=== PATIENT | male | born 1995 | race Caucasian/White ===

== ENCOUNTER 2023-12-27 14:25 | Outpatient (AMB) | payer BC, SELFPAY ==
--- NOTE | 2023-12-27 14:27 | A.OFFPC_ITS ---
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 Will order labs. 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 Pt is following up with an eye doctor due to recent Lasik. [facility] Medical History (Updated 12/27/23 @ 14:55 by IVY Jimenez) Testicular torsion Surgical History (Updated 12/27/23 @ 14:55 by IVY Jimenez) History of orchiectomy Hx of LASIK Family History Mother No problems noted. 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 1. Little interest or pleasure in doing things: not at all 2. Feeling down, depressed, or hopeless: not at all 3. Trouble falling or staying asleep, or sleeping too much: not at all 4. Feeling tired or having little energy: not at all 5. Poor appetite or overeating: not at all 6. Feeling bad about yourself - or that you are a failure or have let yourself or your family down: not at all 7. Trouble concentrating on things, such as reading the newspaper or watching television: not at all 8. Moving or speaking so slowly that other people could have noticed. Or the opposite - being so fidgety or restless that you have been moving around a lot more than usual: not at all 9. Thoughts that you would be better off or of hurting yourself in some way: not at all Total score: 0 Depression Screening Interpretation: Negative Depression Screening Done: Yes 74264 - PHQ-9 Billing: Yes Source: Developed by Drs. Berto Betancourt, Yoly Beckett, Noah Salazar and colleagues, with an educational ravinder from [employer]. Thrive Questionnaire Date Thrive assessed: 12/27/23 I am a: Patient What is your living situation today?: I have a steady place to live Within the past 12 months, did the food you bought not last and you didn't have the money to get more?: Never true Within the past 12 months, did you worry whether your food would run out before you got money to buy more?: Never true Do you have trouble paying for medicines?: No Do you have trouble getting transportation to medical appointments?: No Do you have trouble paying your heating and electricity bill?: No Do you have trouble taking care of your child, family member or friend?: No Do you have trouble with day-to-day activities such as bathing, preparing meals, shopping, managing finances, etc.?: No Are you currently unemployed and looking for a job?: No Are you interested in more education?: Yes Please select the resources that you would like help with: None Currently or been in a relationship where the following occur: no concerns reported THRIVE Score: 0 AUDIT C Alcohol Use Questionnaire (AUDIT-C) 1. How often do you have a drink containing alcohol?: 2-4 times a month 2. How many drinks containing alcohol do you have on a typical day when you are drinking?: 3 or 4 3. How often do you have six or more drinks on one occasion?: Never Total Score: 3 Score Reviewed/Action Taken: Yes JENIFER-7 AMB Questionnaire JENIFER-7 Date JENIFER - 7 assessed: 12/27/23 Feeling nervous, anxious, or on edge: 0 = Not at all Not being able to stop or control worryin = Not at all Worrying too much about different things: 0 = Not at all Trouble relaxin = Not at all Being so restless that it is hard to sit still: 0 = Not at all Becoming easily annoyed or irritable: 0 = Not at all Feeling afraid as if something awful might happen: 0 = Not at all Total JENIFER-7 score (0-4 normal; 5-9 mild; 10-14 moderate; 15-21 severe): 0 Source: Developed by Drs. Berto Betancourt, Yoly Beckett, Noah Salazar and colleagues, with an educational ravinder from [employer]. JENIFER-7 Assessment Billing JENIFER-7 Assessment Tool: JENIFER-7 Assessment 62455 Review of Systems Const Denies chills and Denies fever(s) Eyes Denies blurry vision ENT Denies vertigo, Denies dizziness and Denies sore throat Card Denies chest pain at rest, Denies chest pain with activity, Denies diaphoresis, Denies dyspnea and Denies dyspnea on exertion Resp Denies cough, Denies dyspnea, Denies dyspnea on exertion and Denies wheezing GI Denies abdominal pain, Denies melena, Denies hematochezia, Denies constipation, Denies diarrhea and Denies loose stools Denies hematuria Musc Denies numbness and Denies tingling Skin/Breast Denies lesions Neuro Denies vertigo, Denies dizziness, Denies numbness and Denies tingling Psych Denies anxiety, Denies depression, Denies homicidal ideation, Denies suicidal ideation and Denies other (substance abuse) Aller/Immun Denies wheezing Physical exam (Primary Care) Vital Signs: Last Vital Signs Pulse 70 12/27/23 14:32 BP 130/72 12/27/23 14:32 Pulse Ox 99 12/27/23 14:32 Oxygen Delivery Method Room Air 12/27/23 14:32 BMI result Body Mass Index 28.8 Tobacco/Smoking Status: Tobacco use Status Tobacco use date assessed 12/27/23 12/27/23 14:29 Patient Tobacco Use Status Never used Tobacco 12/27/23 14:40 e-Cigarette/Vaping Use Never Used 12/27/23 14:40 PHQ-9: PHQ-9 Score PHQ-9: Total score 0 12/27/23 14:46 Depression Screening Interpretation: Negative Thrive Assessment: Date of Thrive Assessment Date Thrive assessed 12/27/23 12/27/23 14:40 Currently or been in a relationship where the following occur: no concerns reported Const General: cooperative Nutritional Appearance: well nourished Orientation/consciousness: patient oriented x3 HENMT Head: Yes normal to inspection, Yes normocephalic and Yes atraumatic Ears: TM's normal bilaterally Eyes Other: left eyeball lateral aspect of iris with slight erythema (recent lasik) Alignment and Position: alignment normal and position normal Neck Neck: Yes normal visual inspection and Yes no lymphadenopathy Thyroid: Thyroid normal Resp Effort & Inspection: normal respiratory effort Auscultation: clear to auscultation bilaterally Cardio Rate: regular rate Rhythm: regular rhythm Heart sounds: S1 normal heart sound present, S2 normal heart sound present and no murmurs GI Palpation (GI): Soft to palpation and nontender Auscultation: normal bowel sounds Other: singular testicle Male General Exam: Yes normal external exam Penis: normal penis Scrotum: scrotum normal and no inguinal hernias Testes: no testicular mass Skin Rashes: no rashes Neuro General: patient oriented x3, moves all extremities, no focal motor deficits and deep tendon reflexes 2+ bilaterally Romberg Test: Negative Psych Appearance: grossly normal Mental Status: mental status grossly normal Speech and movement: Normal speech and movement present Affect: normal affect Attitude: cooperative Thought process: Normal thought process present Thought content: Normal thought content present Insight: Good insight present (Psych) Judgement: Good judgement present (Psych) Assessment and Plan Assessment & Plan (1) Physical exam: Code(s): Z00.00 - Encounter for general adult medical examination without abnormal findings Plan: Labs ordered Plan The patient agreed to the use of a medical records auditor for this encounter. Scribed for IVY Jones by annmarie Lilly scribe, on 12/27/2023 at 14:40 EST. Orders: Orders Comprehensive [place]. Panel Fast Today Z00.00 - Encounter for general adult medical examination without abnormal findings UA CC w/rflx Micro + Cult Today Z00.00 - Encounter for general adult medical examination without abnormal findings AMB EKG-In Office Today Z00.00 - Encounter for general adult medical examination without abnormal findings Complete Blood Count Auto Diff Today Z00.00 - Encounter for general adult medical examination without abnormal findings TSH reflex Free T4 Today Z00.00 - Encounter for general adult medical e xamination without abnormal findings Lipid Panel Today Z00.00 - Encounter for general adult medical examination without abnormal findings Coding Level of Care Code New Pt Prev Care 18-39yr(39947 Diagnoses Physical exam Z00.00 Additional Codes JENIFER-7 Assessment Billing - JENIFER-7 Assessment Tool: JENIFER-7 Assessment 28487 ([id number])
[2023-12-27 14:32] VITALS: BP 130/72; PULSE 70; O2SAT 99; BMI 28.8
== END 2023-12-27 15:17 | disposition home or self-care (01) ==
PROVIDERS: PCP Pediatrics; Visit Provider Nurse Practitioner Family
DX: Z00.00 Encounter for general adult medical examination without abnormal findings (principal)
CPT/HCPCS: 99385

== ENCOUNTER 2025-01-29 15:48 | Outpatient (AMB) | payer OTHER, SELFPAY ==
[2025-01-29 15:52] VITALS: BP 110/68; O2SAT 98; BMI 28.9
--- NOTE | 2025-01-29 15:52 | MHC.PC.OV ---
Vital Signs 01/29/25 15:52 Height 5 ft 9 in Weight 195 lb 8 oz BMI 28.9 BP 110/68 Blood Pressure Location Lt brachial Position Sitting Pulse Oximetry (%) 98 Oxygen Delivery Method Room Air Intake Visit Reasons: Annual PE Intake Note: Pt is here today annual physical. Allergies No Known Allergies Allergy (Verified 01/29/25 16:32) Medication List - Last Reconciled 01/29/25 by IVY Jimenez No Known Home Meds Tobacco use date assessed: 01/29/25 Dental Screening Dental Screen Date: 01/29/25 Did you have a dental visit in the last 12 months?: Yes Did you have a dental problem in the last 6 months where you did not have access to dental care?: No Was dental information given to patient?: Patient has dentist HPI Annual PE HPI Details History of Present Illness The patient is a 29-year-old male presenting for a wellness/physical examination. He denies any present symptoms such as chest pain, shortness of breath, abdominal pain, blood in stool, constipation, or diarrhea. There are also no indications of psychological distress, as he denies both suicidal and homicidal ideations. His past medical history includes an orchiectomy, which was performed due to a testicular torsion many years prior. 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 - Reports doing well in his current job Review of Systems - Cardiovascular: Denies chest pain or shortness of breath - Gastrointestinal: Denies abdominal pain, blood in stool, constipation, diarrhea - Psychological: Denies suicidal ideation or homicidal ideation Physical Exam General: Cooperative, healthy appearing, comfortable, no acute distress and well developed Orientation: Patient oriented x3 Limitations: No limitations Head: Normal to inspection Ears: Hearing grossly normal bilaterally Nose: Normal external nose present Face and sinus: Normal facial exam Eyes: Appearance normal, both eyes and all related structures Neck: Normal visual inspection and Yes full ROM Respiratory: Normal respiratory effort and able to speak in complete sentences. Clear to auscultation bilaterally Cardiovascular: Regular rate and rhythm. Normal S1 and S2 GI: Normal to inspection. Soft to palpation and nontender Skin: No rashes or lesions noted Neuro: Patient oriented x3 Extremities: Normal to inspection, : singular testicle noted Results Plan The patient presented for a general wellness examination with no current symptoms. Given his history of prior orchiectomy due to testicular torsion, and as he is not experiencing issues related to this, no further action is required. 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 Discussion Notes During this wellness examination, we discussed the patient's medical history, including his prior orchiectomy associated with testicular torsion. The patient is currently asymptomatic and doing well in his occupation. It was concluded that no further interventions or diagnostic assessments are necessary unless new symptoms develop. I have advised maintaining regular check-ups to ensure ongoing good health. NOTE: pt was using 'pre work-out before going to the gym, will have him stop using this. Patient Instructions - Continue regular wellness checks to monitor health status. - Report any new symptoms or health changes promptly. - No immediate interventions needed at this time. [facility] Medical History Testicular torsion Surgical History History of orchiectomy Hx of LASIK Family History Mother No problems noted. 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 1. Little interest or pleasure in doing things: not at all 2. Feeling down, depressed, or hopeless: not at all 3. Trouble falling or staying asleep, or sleeping too much: not at all 4. Feeling tired or having little energy: not at all 5. Poor appetite or overeating: not at all 6. Feeling bad about yourself - or that you are a failure or have let yourself or your family down: not at all 7. Trouble concentrating on things, such as reading the newspaper or watching television: not at all 8. Moving or speaking so slowly that other people could have noticed. Or the opposite - being so fidgety or restless that you have been moving around a lot more than usual: not at all 9. Thoughts that you would be better off or of hurting yourself in some way: not at all Total score: 0 Depression Screening Interpretation: Negative Depression Screening Done: Yes 26314 - PHQ-9 Billing: Yes Source: Developed by Drs. Berto Betancourt, Yoly Beckett, Noah Salazar and colleagues, with an educational ravinder from [employer]. Thrive Questionnaire Date Thrive assessed: 01/29/25 I am a: Patient What is your living situation today?: I have a steady place to live Within the past 12 months, did the food you bought not last and you didn't have the money to get more?: Never true Within the past 12 months, did you worry whether your food would run out before you got money to buy more?: Never true Do you have trouble paying for medicines?: No Do you have trouble getting transportation to medical appointments?: No Do you have trouble paying your heating and electricity bill?: No Do you have trouble taking care of your child, family member or friend?: No Do you have trouble with day-to-day activities such as bathing, preparing meals, shopping, managing finances, etc.?: No Are you currently unemployed and looking for a job?: No Are you interested in more education?: No Please select the resources that you would like help with: None Currently or been in a relationship where the following occur: I choose not to answer THRIVE Score: 0 AUDIT C Alcohol Use Questionnaire (AUDIT-C) 1. How often do you have a drink containing alcohol?: Monthly or less 2. How many drinks containing alcohol do you have on a typical day when you are drinking?: 1 or 2 3. How often do you have six or more drinks on one occasion?: Never Total Score: 1 Score Reviewed/Action Taken: Yes JENIFER-7 AMB Questionnaire JENIFER-7 Date JENIFER - 7 assessed: 01/29/25 Feeling nervous, anxious, or on edge: 0 = Not at all Not being able to stop or control worryin = Not at all Worrying too much about different things: 0 = Not at all Trouble relaxin = Not at all Being so restless that it is hard to sit still: 0 = Not at all Becoming easily annoyed or irritable: 0 = Not at all Feeling afraid as if something awful might happen: 0 = Not at all Total JENIFER-7 score (0-4 normal; 5-9 mild; 10-14 moderate; 15-21 severe): 0 Source: Developed by Drs. Berto Betancourt, Yoly Beckett, Noah Salazar and colleagues, with an educational ravinder from [employer]. JENIFER-7 Assessment Billing JEINFER-7 Assessment Tool: JENIFER-7 Assessment 03214 Physical exam (Primary Care) Vital Signs: Last Vital Signs BP 138/90 H 01/29/25 15:52 Pulse Ox 98 01/29/25 15:52 Oxygen Delivery Method Room Air 01/29/25 15:52 BMI result Body Mass Index 28.9 Tobacco/Smoking Status: Tobacco use Status Tobacco use date assessed 01/29/25 01/29/25 15:54 Patient Tobacco Use Status Never used Tobacco 01/29/25 15:54 e-Cigarette/Vaping Use Never Used 01/29/25 15:54 PHQ-9: PHQ-9 Score PHQ-9: Total score 0 01/29/25 16:35 Depression Screening Interpretation: Negative Thrive Assessment: Date of Thrive Assessment Date Thrive assessed 01/29/25 01/29/25 15:54 Currently or been in a relationship where the following occur: I choose not to answer Coding Level of Care Code Est Pt Prev Care 18-39y(47002) Diagnoses Physical exam Z00.00 Additional Codes JENIFER-7 Assessment Billing - JENIFER-7 Assessment Tool: JENIFER-7 Assessment 22724 ([id number]) PHQ-9 - 01623 - PHQ-9 Billing: Yes ([id number]) Assessment & Plan Assessment & Plan (1) Physical exam: Code(s): Z00.00 - Encounter for general adult medical examination without abnormal findings Category: Medical Plan . Orders: Orders TSH reflex Free T4 Today Z00.00 - Encounter for general adult medical examination without abnormal findings Lipid Panel Today Z00.00 - Encounter for general adult medical examination without abnormal findings Complete Blood Count Auto Diff Today Z00.00 - Encounter for general adult medical examination without abnormal findings Comprehensive [place]. Panel Fast Today Z00.00 - Encounter for general adult medical examination without abnormal findings UA CC w/rflx Micro + Cult Today Z00.00 - Encounter for general adult medical examination without abnormal findings
--- OUTSIDE RECORDS SUMMARY | 2025-01-29 18:11 | XMS_ITS | Clinical Summary ---
Author Organization [facility] Address [address] [place] [phone] Phone Care Team Providers Care Manufacturing Maintenance Mechanic Name Role Phone Yared Minor MD Primary Care Provider Unavailabl e Immunizations Immunization Administration Dates Next Due DTP 10/25/1998, 8,1997,06/26 DTaP 5 05/17/2001 H1N1 08/14/2009 HPV Vaccine 9 Valent 09/30/2015 HPV, Quadrivalent 05/13/2015,04/02/2015 Hep A, ped/adol 09/30/2015,03/12/2015 Hep B, ped/adol 1997,1997,1997 Hib (PRP-T) 07/27/1998, 8,1997,06/26 IPV 05/17/2001 Influenza Split 06/26/2013, 2,05/25/2011,07/19 Influenza, injectable, quadr ivalent, preservative free 07/03/2015,07/09/2014 Influenza, injectable, trivalent 07/12/2009,07/15 MMR 05/17/2001,05/04/1998 Meningococcal Conj (Menactra) MCV4P 04/02/2015,0 05/25/2011 OPV 1997,1997,1997 Tdap 05/21/2009 Varicella 05/23/2010,05/04/1998 Family History Relation Name Status Comments Father Alive Father: Alive a nd well Mother Mother: Migrain es Other No family histo ry of Sudden /CT under age 55, Family history of Diabetes mellitus, Family history of CVA (Stroke), Family history of Hyperlipidemia Paternal Grandmother Paterna l grandmother: Hypertension Sister Alive Sister: Alive a nd well Social History Tobacco Use Types Packs/Day Years Used Date Smoking Tobacco: Never Comments:Never smoker Sex and Gender Information Value Date Recorded Sex Assigned at Not on file Legal Sex Male 5:06 PM EDT Gender Identity Not on file Sexual Orientation Not on file Last Filed Vital Signs Vital Sign Reading Time Taken Comments Blood Pressure 126/83 07/03/2015 12:00 AM EDT Pulse 79 07/03/2015 12:00 AM EDT Temperature 35.9 ??C (96.7 ??F) 07/03/2015 12:00 AM E DT Respiratory Rate - - Oxygen Saturation - - Inhaled Oxygen Concentration - - Weight 72.6 kg (160 lb) 07/03/2015 12:00 AM EDT Height 175.3 cm (5' 9 ) 07/03/2015 12:00 AM EDT Body Mass Index 23.63 07/03/2015 12:00 AM EDT Plan of Treatment Health Maintenance Due Date Last Done Comments DTaP,Tdap,and Td Vaccines (7 - Td or Tdap) 05/21/2019 05/21/2009, 05/17/2001, 10/25/1998, Additional history exists Influenza Vaccines (#1) 2024 07/03/20 15, 07/09/2014, 06/26/2013, Additional history exists COVID-19 Vaccine ( season) 2024 Hepatitis B Vaccines Completed 1997, 1997, 1997 HIB Vaccines Completed 07/27/1998, 11/15, 1997, Additional history exists IPV Vaccines Completed 05/17/2001, 11/15, 1997, Additional history exists MMR Vaccines Completed 05/17/2001, 05/04/1998 Varicella Vaccines Completed 05/23/2010, 05/04/1998 Meningococcal Vaccine Completed 04/02/2015, 011 HPV Vaccines Completed 09/30/2015, 04/16, 04/02/2015 Hepatitis A Vaccines Completed 09/30/2015, 03/12/20 15 Men B Vaccine Aged Out No longer elig ible based on patient's age to complete this topic Pneumococcal Vaccine Aged Out No long er eligible based on patient's age to complete this topic Care Teams Manufacturing Maintenance Mechanic Relationship Specialty Start Date End Date Yared Minor MD PCP - General 05/25/17
--- OUTSIDE RECORDS SUMMARY | 2025-01-29 18:11 | XMS_ITS | Encounter Summary ---
Author Organization [facility] Address [address] [place] [address] Phone Care Team Providers Care Clinical Account Executive Name Role Phone Yared Minor MD Primary Care Provider Unavailabl e Encounter Details Date Type Department Care Team (Late st Contact Info) Description 07/08/2015 Documentation [facility] [place] [facility] [address] [place] [address] Family Medicine, Physician [facility] [place], [place] [id number] Social History Tobacco Use Types Packs/Day Years Used Date Smoking Tobacco: Never Comments:Never smoker Sex and Gender Information Value Date Recorded Sex Assigned at Not on file Legal Sex Male 5:06 PM EDT Gender Identity Not on file Sexual Orientation Not on file documented as of this encounter Plan of Treatment Not on file documented as of this encounter Visit Diagnoses Not on filedocumented in this encounter Care Teams Clinical Account Executive Relationship Specialty Start Date End Date Yared Minor MD PCP - General 05/25/17 documented as of this encounter
--- OUTSIDE RECORDS SUMMARY | 2025-01-29 18:11 | XMS_ITS | Encounter Summary ---
Author Organization [facility] Address [address] [place] [phone] Phone Care Team Providers Care Prenatal Genetic Counselor Name Role Phone Yared Minor MD Primary Care Provider Unavailabl e Encounter Details Date Type Department Care Team (Late st Contact Info) Description 05/31/2017 Conversion Encounter [facility] - [address] [address] Social History Tobacco Use Types Packs/Day Years [...] on filedocumented in this encounter Care Teams Prenatal Genetic Counselor Relationship Specialty Start Date End Date Yared Minor MD PCP - General 05/25/17 documented as of this encounter
== END 2025-01-29 16:35 | disposition home or self-care (01) ==
LOC: HO.HMCC 15:49
PROVIDERS: PCP Nurse Practitioner Family; Visit Provider Nurse Practitioner Family
DX: Z00.00 Encounter for general adult medical examination without abnormal findings (principal)

== ENCOUNTER → 2025-01-29 15:48 | Outpatient (BNVA) | payer OTHER, SELFPAY | PROVIDERS: PCP Nurse Practitioner Family; Visit Provider Nurse Practitioner Family | DX: Z00.00 Encounter for general adult medical examination without abnormal findings (principal) | CPT/HCPCS: 96127 ==